=== PATIENT | male | born 1995 | race Caucasian/White ===

== ENCOUNTER 2017-01-05 13:03 | Emergency (ER) | payer OTHER, SELFPAY ==
[~2017-01-05] VITALS: Ht 172.7 cm; Wt 68.0 kg
[2017-01-05 13:04] VITALS: BP 132/52
[2017-01-05] MEDS ORDERED: ALBU17IN (13:35)
== END 2017-01-05 16:06 | disposition left against medical advice (07) ==
LOC: M ED 16:05
DX: Z53.29 Procedure and treatment not carried out because of patient's decision for other reasons (principal)

== ENCOUNTER 2017-01-30 13:56 | Emergency (ER) | payer MEDICAID, SELFPAY ==
[~2017-01-30] VITALS: Ht 172.7 cm; Wt 65.8 kg
[2017-01-30 13:56] VITALS: BP 145/68
[~2017-01-30 13:56] MED LIST: ALBU17IN
[2017-01-30] MEDS ORDERED: ZOLO50TA PO (14:05)
[2017-01-30] MEDS ORDERED: ALBUTEROL 90 MCG/ACT 8GM HFA INHALER INH ONE (14:30)
[2017-01-30] MEDS ORDERED: ALBU17IN2 INH (15:05)
[2017-01-30] MEDS ORDERED: TESS100C PO (15:05)
== END 2017-01-30 15:08 | disposition home or self-care (01) ==
LOC: M ED 14:34
DX: J20.9 Acute bronchitis, unspecified (principal); J45.909 Unspecified asthma, uncomplicated; F17.200 Nicotine dependence, unspecified, uncomplicated; Z79.899 Other long term (current) drug therapy

== ENCOUNTER 2018-05-25 15:05 | Emergency (ER) | payer OTHER, SELFPAY ==
[2018-05-25] MEDS: CYCLOBENZAPRINE 10 MG TAB PO (17:36)
[2018-05-25] MEDS: KETOROLAC TROMETHAMINE 10 MG TAB PO (17:36)
== END 2018-05-25 17:40 | disposition home or self-care (01) ==
LOC: M ED 15:05
DX: M62.830 Muscle spasm of back (principal); J45.909 Unspecified asthma, uncomplicated; M41.9 Scoliosis, unspecified; F90.9 Attention-deficit hyperactivity disorder, unspecified type; F41.9 Anxiety disorder, unspecified; F32.9 Major depressive disorder, single episode, unspecified
CPT/HCPCS: 99283

== ENCOUNTER 2020-02-27 18:14 | Emergency (ER) | payer OTHER ==
[~2020-02-27] VITALS: Ht 170.2 cm; Wt 73.9 kg
[~2020-02-27 18:14] MED LIST changes: +ALBU17IN2 INH; +CYCL-707 PO; +KETO10TAB PO; +TESS100C PO; +VENTAER INH; +ZOLO50TA PO
[2020-02-27] MEDS ORDERED: LIDOCAINE 4% CREAM 5GM (LMX4) TOP ONE (19:00)
[2020-02-27 19:30] VITALS: BP 116/72
[2020-02-27] MEDS ORDERED: ANEC4CRE3 TOP (19:34)
[2020-02-27] MEDS ORDERED: IBUP-1022 PO (19:34)
--- NOTE | 2020-02-28 02:00 | REP ---
ANKLE: REASON: Pain after trauma. COMPARISON: No priors. FINDINGS: No acute fracture or destructive osseous lesion. The mortise is intact. Electronically Signed by Arturo Blake DO 02/28/2020 08:01 A
== END 2020-02-27 19:50 | disposition home or self-care (01) ==
LOC: M ED 18:14
DX: S93.402A Sprain of unspecified ligament of left ankle, initial encounter (principal); W19.XXXA Unspecified fall, initial encounter; Y92.89 Other specified places as the place of occurrence of the external cause; Y99.0 Civilian activity done for income or pay; F17.200 Nicotine dependence, unspecified, uncomplicated; J30.81 Allergic rhinitis due to animal (cat) (dog) hair and dander; Z79.899 Other long term (current) drug therapy; X50.1XXA Overexertion from prolonged static or awkward postures, initial encounter

== ENCOUNTER → 2020-03-13 | Outpatient (CLI) | payer MEDICAID ==
[~2020-03-13] MED LIST changes: +ANEC4CRE3 TOP; +IBUP-1022 PO; +NEXI40CA PO
== END ==
LOC: M LABSMTC 12:36
PROVIDERS: ATTEND Family Medicine
DX: Z11.59 Encounter for screening for other viral diseases (principal)
CPT/HCPCS: C8903; U0003

== ENCOUNTER 2020-09-19 21:03 | Emergency (ER) | payer OTHER ==
[~2020-09-19] VITALS: Ht 170.2 cm; Wt 82.5 kg
[~2020-09-19 21:03] MED LIST changes: -NEXI40CA PO
[2020-09-19] MEDS ORDERED: NEXI40CA PO (21:21)
--- NOTE | 2020-09-19 23:28 | REPVR ---
PROCEDURE INFORMATION: Exam: XR Right Tibia and Fibula Exam date and time: 09/19/2020 10:49 PM Age: 25 years old Clinical indication: Pain; Lower leg; Right; Additional info: Trauma to medial lower leg TECHNIQUE: Imaging protocol: XR Right tibia and fibula. Views: 2 views. COMPARISON: No relevant prior studies available. FINDINGS: Bones/joints: Normal. Soft tissues: Normal. IMPRESSION: No acute findings. Electronically signed by: Tk Choudhary On 09/19/2020 23:28:26 PM
[2020-09-19 23:35] VITALS: BP 118/58
== END 2020-09-19 23:52 | disposition home or self-care (01) ==
LOC: M ED 21:03
DX: S80.11XA Contusion of right lower leg, initial encounter (principal); W20.8XXA Other cause of strike by thrown, projected or falling object, initial encounter; Y92.59 Other trade areas as the place of occurrence of the external cause; Y93.89 Activity, other specified; Y99.0 Civilian activity done for income or pay; F17.200 Nicotine dependence, unspecified, uncomplicated; Z79.899 Other long term (current) drug therapy

== ENCOUNTER 2021-03-02 16:49 | Emergency (ER) | payer OTHER ==
[~2021-03-02] VITALS: Ht 170.2 cm; Wt 77.3 kg
[~2021-03-02 16:49] MED LIST changes: +NEXI40CA PO
[2021-03-02] MEDS ORDERED: ONDANSETRON 4MG/2ML VIAL As Ordered ONE (17:09)
[2021-03-02] MEDS ORDERED: KETOROLAC 30 MG/ML 1ML VIAL IV ONE (17:35)
[2021-03-02] MEDS ORDERED: ONDANSETRON 4MG/2ML VIAL IV ONE (17:35)
[2021-03-02] MEDS ORDERED: NS 1,000 ML IV ONE (17:35)
[2021-03-02 18:05] LABS: BASO % 0.2 % (0.0-1.0); EOS # 0.1 10^3/uL (0.0-0.5); EOS % 0.8 % (0.0-3.0); HEMATOCRIT 50.9 % (42.0-52.0); HEMOGLOBIN 17.9 g/dl (13.5-17.5); LYMPH # 0.4 10^3/uL (1.5-5.0); MEAN CORPUSCULAR HEMOGLOBIN 30.4 pg (27.0-33.0); MEAN CORPUSCULAR HGB CONC 35.2 g/dl (32.0-36.5); MEAN CORPUSCULAR VOLUME 86.4 fl (80.0-96.0); MONO # 0.4 10^3/uL (0.0-0.8); MONO % 3.5 % (2.0-8.0); NEUTROPHILS # 10.1 10^3/uL (1.5-8.5); NEUTROPHILS % 91.2 % (36.0-66.0); PLATELET COUNT, AUTOMATED 218 10^3/uL (150-450); RED BLOOD COUNT 5.89 10^6/uL (4.30-6.10)
[2021-03-02 18:30] LABS: ALBUMIN 4.5 GM/DL (3.2-5.2); BILIRUBIN,DIRECT 0.4 MG/DL (0.0-0.2); BILIRUBIN,TOTAL 2.5 MG/DL (0.2-1.0); TOTAL PROTEIN 7.6 GM/DL (6.4-8.2)
--- NOTE | 2021-03-02 19:33 | REPVR ---
PROCEDURE INFORMATION: Exam: US Abdomen, Limited; Right Upper Quadrant Exam date and time: 03/02/2021 7:14 PM Age: 25 years old Clinical indication: Abdominal pain; Epigastric; Additional info: Abd pain/vomiting/diarrhea TECHNIQUE: Imaging protocol: US abdomen. Real time ultrasound with image documentation. Limited exam focused on the right upper quadrant. COMPARISON: No relevant prior studies available. FINDINGS: Liver: The liver is diffusely echogenic relative to the right kidney, findings consistent with steatosis. Gallbladder: 2 mm echogenic mucosal polyp demonstrated in the gallbladder. Findings likely represent cholesterol polyp. Gallbladder otherwise unremarkable. Common bile duct: The common bile duct measures 4.4 mm. No mass or choledocholithiasis. Pancreas: Visualized pancreas is unremarkable. Right kidney: Right kidney measures 11.2 x 4.2 x 4.7 cm. IMPRESSION: 1. Hepatic steatosis. 2. 2 mm echogenic mucosal polyp demonstrated in the gallbladder. Findings likely represent cholesterol polyp. Electronically signed by: Rupert Middleton On 03/02/2021 19:33:07 PM
[2021-03-02] MEDS ORDERED: GI COCKTAIL 50ML BTL(HYOSCYAMINE/MAALOX/LIDOCAINE VISCOUS)(1:3:1) PO ONE (21:35)
[2021-03-02] MEDS ORDERED: ONDA4TAB6 PO (21:40)
[2021-03-02 22:15] VITALS: BP 108/63
== END 2021-03-02 22:19 | disposition home or self-care (01) ==
LOC: M ED 16:49
DX: K52.9 Noninfective gastroenteritis and colitis, unspecified (principal); K76.0 Fatty (change of) liver, not elsewhere classified; J45.909 Unspecified asthma, uncomplicated; M41.9 Scoliosis, unspecified; F90.9 Attention-deficit hyperactivity disorder, unspecified type; F41.9 Anxiety disorder, unspecified; F33.9 Major depressive disorder, recurrent, unspecified; F17.200 Nicotine dependence, unspecified, uncomplicated
CPT/HCPCS: 76705; 80047; 80076; 81001; 83690; 85025; 87798; 96361; 96374; 96375; 99284; J1885; J2405

== ENCOUNTER 2021-07-09 02:49 | Inpatient (IN) | payer OTHER ==
[~2021-07-09] VITALS: Ht 172.7 cm; Wt 76.4 kg
[~2021-07-09 02:49] MED LIST changes: +ONDA4TAB6 PO
[2021-07-09 03:33] LABS: HEMATOCRIT 44.4 % (42.0-52.0); HEMOGLOBIN 15.9 g/dl (13.5-17.5); MEAN CORPUSCULAR HEMOGLOBIN 30.9 pg (27.0-33.0); MEAN CORPUSCULAR HGB CONC 35.8 g/dl (32.0-36.5); MEAN CORPUSCULAR VOLUME 86.4 fl (80.0-96.0); PLATELET COUNT, AUTOMATED 272 10^3/uL (150-450); RED BLOOD COUNT 5.14 10^6/uL (4.30-6.10); WHITE BLOOD COUNT 6.7 10^3/uL (4.0-10.0)
[2021-07-09 03:55] LABS: AMPHETAMINES LEVEL URINE NEGATIVE (NEGATIVE); BARBITURATES URINE NEGATIVE (NEGATIVE); BENZODIAZEPINES URINE NEGATIVE (NEGATIVE); CANNABINOIDS URINE NEGATIVE (NEGATIVE); COCAINE METABOLITE URINE NEGATIVE (NEGATIVE); METHADONE URINE NEGATIVE (NEGATIVE); OPIATES URINE NEGATIVE (NEGATIVE); PHENCYCLIDINE URINE NEGATIVE (NEGATIVE)
[2021-07-09 04:04] LABS: ACETAMINOPHEN LEVEL < 2.0 UG/ML (10.0-30.0); ALBUMIN 4.3 GM/DL (3.2-5.2); ALT/SGPT 46 U/L (12-78); BILIRUBIN,DIRECT 0.3 MG/DL (0.0-0.2); BLOOD UREA NITROGEN 13 MG/DL (7-18); CALCIUM LEVEL 8.8 MG/DL (8.5-10.1); CARBON DIOXIDE LEVEL 30 MEQ/L (21-32); CHLORIDE LEVEL 106 MEQ/L (98-107); CREATININE FOR GFR 1.06 MG/DL (0.70-1.30); ETHYL ALCOHOL (ETHANOL) < 0.003 % (0.000-0.010); GLOMERULAR FILTRATION RATE > 60.0 (>60); GLUCOSE, FASTING 110 MG/DL (70-100); POTASSIUM SERUM 3.6 MEQ/L (3.5-5.1); SALICYLATE LEVEL < 1.7 MG/DL (5.0-30.0); SODIUM LEVEL 141 MEQ/L (136-145); TOTAL PROTEIN 7.1 GM/DL (6.4-8.2)
[2021-07-09] MEDS ORDERED: NICOTINE 21MG/24HR 1 EA TRANSDERMAL TD ONE (08:45)
[2021-07-09] MEDS ORDERED: ACET-683 PO (09:47)
[2021-07-09] MEDS ORDERED: HOME MED LIST COMPLETE! XX SCH (09:50)
--- NOTE | 2021-07-09 17:54 | ECGEPIP ---
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
[2021-07-09 19:05] LABS: RSV AMPLIFICATION NEGATIVE (NEGATIVE)
[2021-07-09] MEDS ORDERED: traZODone 50 MG TAB PO PRN (22:55)
[2021-07-09] MEDS ORDERED: ACETAMINOPHEN TAB 650MG DOSE (2X325MG) PO PRN (22:55)
[2021-07-09] MEDS ORDERED: MOM 30ML SUSPENSION UDC PO PRN (22:55)
[2021-07-09] MEDS ORDERED: MAALOX 30 ML SUSP *UDC PO PRN (22:55)
[2021-07-09 23:57] VITALS: BP 123/81
[2021-07-10] MEDS: NICOTINE 21MG/24HR 1 EA TRANSDERMAL TD SCH (09:08)
[2021-07-10] MEDS: OLANZapine ORAL DISINTEGRATING TAB 5MG PO PRN (09:12)
[2021-07-10] MEDS: FLUoxetine 20 MG CAP PO SCH (12:43)
[2021-07-10] MEDS ORDERED: ALBUTEROL SULFATE 2.5 MG/0.5 ML INH NEB SOLN INH PRN (13:00)
--- NOTE | 2021-07-10 13:02 | HPEPDOC ---
[facility] Medical History & Physical Date of Admission Jul 09, 2021 Date of Service: Jul 10, 2021 History and Physical Chief complaint: Who presented to the emergency room with complaints of suicidal thoughts History of present illness: Patient is 25-year-old male who presented to the emergency room with complaints of suicidal ideation. Patient was admitted to the inpatient mental health unit under the care of psychiatry. Hospitalist service was consulted for medical evaluation. Patient was seen and examined in the exam room. Patient denied any chest pain, short of breath, palpitations, nausea, vomiting, abdominal pain, diarrhea, or ur inary discomfort. He denies any recent fevers, chills. Patient reported that he had been on Adderall in the past as experiencing weight gain ever since he stopped using the medication. 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 [employer] Review of Systems: 10 point review of systems complete, all negative otherwise stated in HPI Physical exam: - Vitals: BP [123/81], HR [76], RR [16], Sat [97%RA], Temp [98.2F] - General: Lying in bed, Speaking in full sentences, AAOx3 - HEENT: NC, AT, PERRLA - CVS: RRR, +S1S2, - Murmurs / rubs / gallops - Lungs: Fair air entry bilaterally, No appreciable wheezing / rales / rhonchi - Abdomen: Soft, Non-distended, Non-tender - Extremities: No lower extremity edema, No calf tenderness - Neuro: No focal motor or sensory deficit - Skin: No visible rashes Labs: See below Imaging: See below EKG: See below Assessment and Plan: Suicidal ideation - Patient was admitted to the inpatient mental health unit under the care of psychiatry - Currently being managed by psychiatry Asthma - No evidence of exacerbation - c/w Inhaled therapy as ordered DVT prophylaxis - Will c/w early in relation Female licensing analyst was present throughout the duration of this history and physical examination Thank you for this consultation. Hospitalist service will now sign off. Please reconsult as needed Vital Signs Vital Signs Date Time Temp Pulse Resp B/P (MAP) Pulse Ox O2 Delivery O2 Flow Rate FiO2 07/09/21 23:57 98.2 76 16 123/81 (95) 97 Room Air Laboratory Data Labs 24H Laboratory Tests 2 07/09/21 17:54: Coronavirus (COVID-19)(PCR) NEGATIVE, Influenza Type A (RT-PCR) NEGATIVE, Influenza Type B (RT-PCR) NEGATIVE, Respiratory Syncytial Virus (PCR) NEGATIVE Home Medications Scheduled PRN Acetaminophen (Acetaminophen) 500 Mg Tablet, 1,000 MG PO Q6H PRN for PAIN LEVEL 1-4 Albuterol Sulfate (Ventolin Hfa) 108 Mcg/Act Aer, 2 PUFFS INH Q4H PRN for SHORTNESS OF BREATH Allergies Coded Allergies: Cat Dander (Verified Allergy, Mild, 01/05/17) SHAWNA CHRISTIAN MD Jul 10, 2021 13:02
[2021-07-10] MEDS ORDERED: ALBUTEROL 90 MCG/ACT 8GM HFA INHALER INH PRN (14:55)
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
[2021-07-11 06:08] VITALS: BP 150/74
[2021-07-11] MEDS: OLANZapine ORAL DISINTEGRATING TAB 5MG PO PRN (08:31)
[2021-07-11] MEDS: NICOTINE 21MG/24HR 1 EA TRANSDERMAL TD SCH (08:31)
[2021-07-11] MEDS: FLUoxetine 20 MG CAP PO SCH (08:31)
[2021-07-11] MEDS: hydrOXYzine 25 MG TAB PO SCH ×2 (13:09→21:01)
--- NOTE | 2021-07-11 14:04 | MHIPNPDOC ---
[facility] Progress Note Progress Note DATE OF SERVICE: 07/11/21 This 25-year-old man with a 3-year-old and 1-year-old child has had suicidal tendencies with thoughts of driving fast and does have a gun at home and is made previous suicidal gestures. 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 His medical history is positive for asthma and "depression". He has been using Adderall since age 18 and stated he was getting it from friends but in fact it was from his and his gnjmzs-fa-lzc. His depression has been worsening and his insisted that he stop the Adderall. He has had headaches irritability insomnia and feels that the Adderall started to make his depression worse he originally was using it to treat depression. His jbsqft-on-gst by the way uses benzodiazepines and Adderall and he considers her a drug addict. He states he is more angry since stopping Adderall. He is presently supporting himself on unemployment. His also is home on unemployment taking care of the children's 1 child who is states has autism is unable to tolerate change or noise. He is patient has never had psychiatric care nor been hospitalized for psychiatric reasons his medical history is positive for asthma he has a broken arm he has made 2 previous suicide attempts in the past he has had some college education he has never been treated for drug abuse he does not smoke. Family history is positive that the father goes to anger management and then mother goes to psychiatrist as does his grandmother he does not know why. He is concerned he is losing his . His wcoyzc-el-pih as mentioned does abuse drugs his legal history is negative. He has anxiety and depression and seems to look at the ground when he is talking. He worries what people think of him. He came to the hospital on his own worried about his anger. Patient today discussed his ongoing anxiety and we discussed he is starting on Prozac he would like to go back to work since she has not worked in a while due to his depression and anxiety as well as [place] it. He states he has had a long history of depression and suicidal thoughts throughout his life he discussed how he was bullied is a young man and a child and he discussed his concerns about being protective towards his children. He also discussed ongoing difficulties with siblings. He states there is no more Adderall in his home and we discussed his not wanting to get it from his jjesrz-zi-atd. He states he will not be visiting her any further. VITAL SIGNS: See below. NEW TEST RESULTS: None. CURRENT MEDICATIONS: See below. MENTAL STATUS EXAMINATION: Patient is a 25-year old male, who is suffering from a long history of anxiety and depression and recently Adderall abuse. Speech: Is normal. Language skills are intact. Thought processes including: No disturbance in thought process. Thought content: Discussion of family job anxiety and depression. Abstract reasoning, and computation: Able to abstract. Description of associations: No loose associations. Description of abnormal or psychotic thoughts: No psychotic thought. Judgment: Improved. Insight: Fair. Orientation: X3. Recent and remote memory: Intact. Attention span and concentration: Intact. Language: No disturbance. Fund of knowledge: Full. Mood: Neutral. Affect: Neutral. DIAGNOSES: 1. Chronic depression with anxiety. 2. Adderall abuse. 3. None. ASSESSMENT: As above. MANAGEMENT PLAN: Planning to increase his Prozac to 40 mg and add Atarax. Outpatient planning will begin. TIME SPENT: 35 minutes. Vital Signs Vital Signs Date Time Temp Pulse Resp B/P (MAP) Pulse Ox O2 Delivery O2 Flow Rate FiO2 07/11/21 06:08 98.4 77 16 150/74 (99) 97 Room Air Current Medications Current Medications Medications (Trade) Dose Ordered Sig/Shantell Route PRN Reason Start Time Stop Time Status Last Admin Dose Admin Acetaminophen (Tylenol Tab) 650 mg Q6HP PRN PO HEADACHE or MILD DISCOMFORT 07/09/21 22:55 Al Hydrox/Mg Hydrox/Simethicone (Mylanta) 30 ml Q4HP PRN PO HEARTBURN/INDIGESTION 07/09/21 22:55 Albuterol Sulfate (Proventil Neb) 2.5 mg Q2HP PRN INH SOB/WHEEZING 07/10/21 13:00 Cancel Albuterol Sulfate (Proventil, Ventolin Hfa) 2 puff Q2HP PRN INH SHORTNESS OF BREATH 07/10/21 14:55 Fluoxetine HCl (PROzac) 20 mg QAM PO 07/10/21 09:00 07/11/21 10:58 DC 07/11/21 08:31 Fluoxetine HCl (PROzac) 40 mg QAM PO 07/12/21 09:00 Home Med (Home Med List Complete!) ASDIRECTED XX 07/09/21 09:50 07/09/21 09:51 DC Hydroxyzine HCl (Atarax) 25 mg BID PO 07/11/21 09:00 07/11/21 13:09 Magnesium Hydroxide (Milk Of Magnesia) 30 ml DAILYPRN PRN PO CONSTIPATION 07/09/21 22:55 Nicotine (Nicoderm Cq 21mg) 1 patch DAILY TD 07/10/21 09:00 07/11/21 08:31 Olanzapine (ZyPREXA ZYDIS) 5 mg Q4HP PRN PO AGITATION 07/09/21 22:55 07/11/21 08:31 Trazodone HCl (Desyrel) 50 mg QHSP PRN PO INSOMNIA 07/09/21 22:55 07/10/21 20:48 Allergies Coded Allergies: Cat Dander (Verified Allergy, Mild, 01/05/17) MIKEY RAMOS MD Jul 11, 2021 14:04
[2021-07-12 06:46] VITALS: BP 156/76
[2021-07-12] MEDS: hydrOXYzine 25 MG TAB PO SCH ×2 (08:42→21:01)
[2021-07-12] MEDS: FLUoxetine 20 MG CAP PO SCH (08:43)
[2021-07-12] MEDS: NICOTINE 21MG/24HR 1 EA TRANSDERMAL TD SCH ×2 (08:44→11:44)
--- NOTE | 2021-07-12 12:17 | MHIPNPDOC ---
[facility] Progress Note Progress Note DATE OF SERVICE: 07/12/21 HISTORY: This 25-year-old man with a 3-year-old and 1-year-old child has had suicidal tendencies with thoughts of driving fast and does have a gun at home and is made previous suicidal gestures. 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 His medical history is positive for asthma and "depression". He has been using Adderall since age 18 and stated he was getting it from friends but in fact it was from his and his moth er-in-law. His depression has been worsening and his insisted that he stop the Adderall. He has had headaches irritability insomnia and feels that the Adderall started to make his depression worse he originally was using it to treat depression. His zadnzg-on-pdu by the way uses benzodiazepines and Adderall and he considers her a drug addict. He states he is more angry sinc e stopping Adderall. He is presently supporting himself on unemployment. His also is home on unemployment taking care of the children's 1 child who is states has autism is unable to tolerate change or noise. He is patient has never had psychiatric care nor been hospitalized for psychiatric reasons his medical history is positive for asthma he has a broken arm he has made 2 previous suicide attempts in the past he has had some college education he has never been treated for drug abuse he does not smoke. Family history is positive that the father goes to anger management and then mother goes to psychiatrist as does his grandmother he does not know why. He is concerned he is losing his . His vnrojy-lj-ikd as mentioned does abuse drugs his legal history is negative. He has anxiety and depression and seems to look at the ground when he is talking. He worries what people think of him. He came to the hospital on his own worried about his anger. Patient mood significantly improved. All supplies of Adderall removed from the house. Discharge planning will begin VITAL SIGNS: See below. NEW TEST RESULTS: None. CURRENT MEDICATIONS: See below. MENTAL STATUS EXAMINATION: Patient is a 25-year old male, who is significantly improved in mood and self- esteem. Speech: Is normal. Language skills are intact. Thought processes including: No disturbance. Thought content: Optimistic thinking of his children. Abstract reasoning, and computation: Able to abstract. Description of associations: No loose ass ociations. Description of abnormal or psychotic thoughts: No psychotic. Judgment: Improved. Insight: Fair. Orientation: X3. Recent and remote memory: Intact. Attention span and concentration: Intact. Language: No disturbance. Fund of knowledge: Full. Mood: Good. Affect: Bright. DIAGNOSES: 1. Adderall dependence. 2. Anxiety. 3. None. ASSESSMENT: As above MANAGEMENT PLAN: Patient continues on antidepressant and is in a significantly improved state. Discharge planning will be given. TIME SPENT: minutes. Vital Signs Vital Signs Date Time Temp Pulse Resp B/P (MAP) Pulse Ox O2 Delivery O2 Flow Rate FiO2 07/12/21 06:46 96.9 87 18 156/76 (102) 100 Room Air Current Medications Current Medications Medications (Trade) Dose Ordered Sig/Shantell Route PRN Reason Start Time Stop Time Status Last Admin Dose Admin Acetaminophen (Tylenol Tab) 650 mg Q6HP PRN PO HEADACHE or MILD DISCOMFORT 07/09/21 22:55 Al Hydrox/Mg Hydrox/Simethicone (Mylanta) 30 ml Q4HP PRN PO HEARTBURN/INDIGESTION 07/09/21 22:55 Albuterol Sulfate (Proventil Neb) 2.5 mg Q2HP PRN INH SOB/WHEEZING 07/10/21 13:00 Cancel Albuterol Sulfate (Proventil, Ventolin Hfa) 2 puff Q2HP PRN INH SHORTNESS OF BREATH 07/10/21 14:55 Fluoxetine HCl (PROzac) 20 mg QAM PO 07/10/21 09:00 07/11/21 10:58 DC 07/11/21 08:31 Fluoxetine HCl (PROzac) 40 mg QAM PO 07/12/21 09:00 07/12/21 08:43 Home Med (Home Med List Complete!) ASDIRECTED XX 07/09/21 09:50 07/09/21 09:51 DC Hydroxyzine HCl (Atarax) 25 mg BID PO 07/11/21 09:00 07/12/21 08:42 Magnesium Hydroxide (Milk Of Magnesia) 30 ml DAILYPRN PRN PO CONSTIPATION 07/09/21 22:55 Nicotine (Nicoderm Cq 21mg) 1 patch DAILY TD 07/10/21 09:00 07/12/21 11:44 Olanzapine (ZyPREXA ZYDIS) 5 mg Q4HP PRN PO AGITATION 07/09/21 22:55 07/11/21 08:31 Trazodone HCl (Desyrel) 50 mg QHSP PRN PO INSOMNIA 07/09/21 22:55 07/10/21 20:48 Allergies Coded Allergies: Cat Dander (Verified Allergy, Mild, 01/05/17) MIKEY RAMOS MD Jul 12, 2021 12:17
[2021-07-12 18:43] VITALS: BP 137/83
[2021-07-13 06:33] VITALS: BP 133/74
[2021-07-13] MEDS ORDERED: HYDR-3363 PO (07:44)
[2021-07-13] MEDS ORDERED: FLUO20CA22 PO (07:44)
[2021-07-13] MEDS: hydrOXYzine 25 MG TAB PO SCH (08:32)
[2021-07-13] MEDS: FLUoxetine 20 MG CAP PO SCH (08:32)
[2021-07-13] MEDS: NICOTINE 21MG/24HR 1 EA TRANSDERMAL TD SCH (08:33)
--- NOTE | 2021-07-13 13:30 | MHDSPDOC ---
[facility] Discharge Summary Discharge Summary DATE OF ADMISSION: Jul 09, 2021 at 23:45 DATE OF DISCHARGE: Jul 13, 2021 at 10:27 DISCHARGE DIAGNOSES: 1. Major depression 2. Adderall addiction. REASON FOR ADMISSION: This 25-year-old man with a 3-year-old and 1-year-old child has had suicidal tendencies with thoughts of driving fast and does have a gun at home and is made previous suicidal gestures. 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 His medical history is positive for asthma and "depression". He has been using Adderall since age 18 and stated he was getting it from friends but in fact it was from his and his [id number]. His depression has been worsening and his insisted that he stop the Adderall. He has had headaches irritability insomnia and feels that the Adderall started to make his depression worse he originally was using it to treat depression. His [id number] by the way uses benzodiazepines and Adderall and he considers her a drug addict. He states he is more angry since stopping Adderall. He is presently supporting himself on unemployment. His also is home on unemployment taking care of the children's 1 child who is states has autism is unable to tolerate change or noise. He is patient has never had psychiatric care nor been hospitalized for psychiatric reasons his medical history is positive for asthma he has a broken arm he has made 2 previous suicide attempts in the past he has had some college education he has never been treated for drug abuse he does not smoke. Family history is positive that the father goes to anger management and then mother goes to psychiatrist as does his grandmother he does not know why. He is concerned he is losing his . His [id number] as mentioned does abuse drugs his legal history is negative. He has anxiety and depression and seems to look at the ground when he is talking. He worries what people think of him. He came to the hospital on his own worried about his anger. Psychiatric Review of Systems Depression (2 or more weeks): depressed mood, feelings of worthlesness, decreased energy, suicidal thoughts Ethel (4 or more days of): denies PTSD: denies Anxiety: situational anxiety Anxiety/ 6 months or more of: restlessness, keyed up, irritability Past Psychiatric History Previous Psychiatric Diagnosis: None Previous Psychiatric Admissions: None. Suicide Attempts: 2 previous suicidal gestures. Psychiatric Follow-up: None. Psychiatric medications: None except unprescribed Adderall. Past Medical History Medical Problems Asthma Head Injury: No Seizures: No Hospitalizations: No Surgeries: No Family Medical/Psychiatric HX Psychiatric Disorders: Yes Addiction: Yes Suicide Attemps/Completions: No Addiction History methamphetamines Social History Childhood: No reported history. Abuse/Trauma: No reported abuse. Current Living Situation: Lives with and 2 children. Education: Some college. Employment: Not presently employed. Social Support: Marriage. Legal: No legal problems. Marital: Presently with some stressors. TREATMENT AND PROGRESS ON THE UNIT : Patient improved significantly on antidepressants and with counseling. Outpatient plans were made. Any Adderall that was in the house was disposed. HOSPITAL COURSE: As above DISCHARGE ASSESSMENT: Significant improvement in the mood and outpatient treatment now possible MENTAL STATUS EXAMINATION ON DISCHARGE: Patient is a 25-year old male, who is in good mood denies any suicidal ideation. Speech is normal. Language skills are intact. Thought processes including: Hopeful. Thought content: Grateful. Abstract reasoning, and computation: Able to abstract. Description of associations: No loose. Description of abnormal or psychotic thoughts: No psychotic thought. Judgment: Improved. Insight: Improved. Orientation to x3. Recent and remote memory: Intact. Attention span and concentration: Improved. Language: No disturbance. Fund of knowledge: Full. Mood: Good. Affect: Bright. MEDICATIONS ON DISCHARGE: -Fluoxetine for 40 mg depression. -Hydroxyzine for 25 mg twice a day anxiety. PLAN/FOLLOWUP ARRANGEMENTS: As per airport planner. The amount of time spent in the coordination of care for this patient was approximately 35 minutes. ETOH/Disorder Med Rx ETOH/DRUG DISORDER RX: N/A Vital Signs/I&Os Vital Signs Date Time Temp Pulse Resp B/P (MAP) Pulse Ox O2 Delivery O2 Flow Rate FiO2 07/13/21 06:33 97.5 80 16 133/74 (93) 98 Room Air Medications Scheduled Fluoxetine Hcl (Fluoxetine HCl) 20 Mg Capsule, 40 MG PO QAM for Depression, #20 Hydroxyzine HCl (Hydroxyzine HCl) 25 Mg Tablet, 25 MG PO BID for Anxiety, #20 Scheduled PRN Acetaminophen (Acetaminophen) 500 Mg Tablet, 1,000 MG PO Q6H PRN for PAIN LEVEL 1-4, (Reported) Albuterol Sulfate (Ventolin Hfa) 108 Mcg/Act Aer, 2 PUFFS INH Q4H PRN for SH ORTNESS OF BREATH, (Reported) Allergies Coded Allergies: Cat Dander (Verified Allergy, Mild, 01/05/17) MIKEY RAMOS MD Jul 13, 2021 13:30
== END 2021-07-13 10:27 | disposition home or self-care (01) | DRG 754 ==
LOC: M ED 02:49 → M PSY 23:45
PROVIDERS: ADMIT Psychiatry & Neurology Child & Adolescent Psychiatry; ATTEND Psychiatry & Neurology Child & Adolescent Psychiatry
DX: F32.9 Major depressive disorder, single episode, unspecified (principal); F15.20 Other stimulant dependence, uncomplicated; R45.851 Suicidal ideations; J45.909 Unspecified asthma, uncomplicated

== ENCOUNTER 2022-05-04 19:55 | Emergency (ER) | payer OTHER, MEDICAID ==
[~2022-05-04] VITALS: Ht 172.7 cm; Wt 89.5 kg
[2022-05-04 19:55] VITALS: BP 132/65
[~2022-05-04 19:55] MED LIST changes: +ACET-683 PO; +FLUO20CA22 PO; +HYDR-3363 PO
== END 2022-05-05 00:13 | disposition home or self-care (01) ==
LOC: M ED 19:55
DX: S06.0X0A Concussion without loss of consciousness, initial encounter (principal); Y09 Assault by unspecified means; F10.10 Alcohol abuse, uncomplicated; F17.200 Nicotine dependence, unspecified, uncomplicated; Y92.9 Unspecified place or not applicable; Y93.9 Activity, unspecified; Y99.9 Unspecified external cause status

== ENCOUNTER → 2023-01-15 | Outpatient (REF) | payer OTHER, MEDICAID | LOC: M LAB REF 21:23 | PROVIDERS: ATTEND Physician Assistant | DX: J02.9 Acute pharyngitis, unspecified (principal) ==

== ENCOUNTER 2024-04-04 12:07 | Inpatient (IN) | payer MEDICAID, OTHER ==
[~2024-04-04] VITALS: Ht 172.7 cm; Wt 72.2 kg
[~2024-04-04 12:07] MED LIST changes: +CLON-412 PO; +FLUO-365 PO; -FLUO20CA22 PO; +FLUO40CA PO; +GABA-1171 PO; +METH20CA2 PO; +METH20TA29 PO; +ONDA-282 PO; -ONDA4TAB6 PO
[2024-04-04 13:03] LABS: HEMATOCRIT 46.4 % (42.0-52.0); HEMOGLOBIN 16.6 g/dl (13.5-17.5); MEAN CORPUSCULAR HEMOGLOBIN 30.2 pg (27.0-33.0); MEAN CORPUSCULAR HGB CONC 35.8 g/dl (32.0-36.5); MEAN CORPUSCULAR VOLUME 84.4 fl (80.0-96.0); PLATELET COUNT, AUTOMATED 302 10^3/uL (150-450); WHITE BLOOD COUNT 9.8 10^3/uL (4.0-10.0)
[2024-04-04] MEDS ORDERED: HYDR-643 PO (13:15)
[2024-04-04] MEDS ORDERED: VILO100C PO (13:15)
[2024-04-04 13:29] LABS: ETHYL ALCOHOL (ETHANOL) 0.003 % (0.000-0.010)
[2024-04-04 13:30] LABS: SALICYLATE LEVEL < 3.0 MG/DL (<30)
[2024-04-04 13:31] LABS: ALBUMIN 4.3 G/DL (3.2-5.2); ALKALINE PHOSPHATASE 72 U/L (46-116); ALT/SGPT 32 U/L (7.0-40); AST/SGOT 15 U/L (<34); BILIRUBIN,DIRECT 0.5 MG/DL (<0.4); BILIRUBIN,TOTAL 1.5 MG/DL (0.3-1.2); BLOOD UREA NITROGEN 10 MG/DL (9-23); CALCIUM LEVEL 9.6 MG/DL (8.5-10.1); CARBON DIOXIDE LEVEL 28 MMOL/L (20-31); CHLORIDE LEVEL 106 MMOL/L (98-107); CREATININE FOR GFR 0.96 MG/DL (0.70-1.30); GLOMERULAR FILTRATION RATE > 60.0 (>60); GLUCOSE, FASTING 102 MG/DL (60-100); POTASSIUM SERUM 3.7 MMOL/L (3.5-5.1); SODIUM LEVEL 139 MMOL/L (136-145); THYROID STIMULATING HORMONE 1.036 uIU/ML (0.55-4.78); TOTAL PROTEIN 7.1 G/DL (5.7-8.2)
[2024-04-04 15:19] LABS: AMPHETAMINES LEVEL URINE NEGATIVE (NEGATIVE); CANNABINOIDS URINE NEGATIVE (NEGATIVE); METHADONE URINE NEGATIVE (NEGATIVE); OPIATES URINE NEGATIVE (NEGATIVE); PHENCYCLIDINE URINE NEGATIVE (NEGATIVE)
[2024-04-04 15:20] LABS: BARBITURATES URINE NEGATIVE (NEGATIVE); BENZODIAZEPINES URINE NEGATIVE (NEGATIVE); COCAINE METABOLITE URINE NEGATIVE (NEGATIVE)
[2024-04-04] MEDS: NICOTINE 21MG/24HR 1 EA TRANSDERMAL TD ONE (18:46)
[2024-04-04] MEDS ORDERED: diphenhydrAMINE 25MG CAP PO PRN (19:45)
[2024-04-04] MEDS ORDERED: MOM 30ML SUSPENSION UDC PO PRN (19:45)
[2024-04-04] MEDS ORDERED: IBUPROFEN 400MG TAB PO PRN (19:45)
[2024-04-04] MEDS ORDERED: MAALOX 30 ML SUSP *UDC PO PRN (19:45)
[2024-04-04 21:05] VITALS: BP 134/86; TEMP 98.1; O2SAT 96
[2024-04-04] MEDS: traZODone 50 MG TAB PO PRN (22:44)
[2024-04-05] MEDS: ACETAMINOPHEN TAB 650MG DOSE (2X325MG) PO PRN (04:42)
[2024-04-05 06:53] VITALS: BP 114/58; TEMP 96.9; O2SAT 98
[2024-04-05] MEDS: NICOTINE 21MG/24HR 1 EA TRANSDERMAL TD SCH (09:57)
[2024-04-05] MEDS: FLUoxetine 20MG CAP PO SCH (09:57)
[2024-04-05 16:52] VITALS: BP 117/77; TEMP 96.8; O2SAT 94
[2024-04-05] MEDS ORDERED: ALBUTEROL 90 MCG/ACT 8GM HFA INHALER INH PRN (18:05)
[2024-04-05] MEDS ORDERED: FLUO-365 PO (18:17)
[2024-04-05] MEDS ORDERED: HOME MED LIST COMPLETE! XX SCH (18:20)
[2024-04-06 06:30] VITALS: BP_SYST 120; BP_SYST 136; BP_DIAS 67; TEMP 98.6; O2SAT 76; O2SAT 99
[2024-04-06] MEDS ORDERED: TRAZ-252 PO (08:13)
[2024-04-06] MEDS ORDERED: NICO21PAT TD (08:13)
[2024-04-06] MEDS ORDERED: FLUO40CA PO (08:13)
[2024-04-06] MEDS ORDERED: FLUO-365 PO (08:13)
[2024-04-06] MEDS: [UNRECOGNIZED DRUG - OTHER] PO SCH (08:20)
== END 2024-04-06 11:00 | disposition home or self-care (01) | DRG 754 ==
LOC: M ED 12:07 → M ED INP 19:41 → M PSY 20:20
PROVIDERS: ADMIT Student in an Organized Health Care Education/Training Program; ATTEND Student in an Organized Health Care Education/Training Program
DX: F43.21 Adjustment disorder with depressed mood (principal); R45.851 Suicidal ideations; F60.89 Other specific personality disorders; F17.200 Nicotine dependence, unspecified, uncomplicated; F64.9 Gender identity disorder, unspecified; J45.909 Unspecified asthma, uncomplicated; Z79.899 Other long term (current) drug therapy

== ENCOUNTER 2024-05-29 02:31 | Emergency (ER) | payer MEDICAID, OTHER ==
[~2024-05-29] VITALS: Ht 172.7 cm; Wt 70.0 kg
[~2024-05-29 02:31] MED LIST changes: +HYDR-643 PO; +NICO21PAT TD; +TRAZ-252 PO; +VILO100C PO
[2024-05-29 04:12] LABS: BASO % 0.4 % (0.0-1.0); EOS # 0.2 10^3/uL (0.0-0.5); EOS % 2.1 % (0.0-3.0); HEMATOCRIT 41.7 % (42.0-52.0); HEMOGLOBIN 15.1 g/dl (13.5-17.5); LYMPH # 2.1 10^3/uL (1.5-5.0); LYMPH % 23.5 % (24.0-44.0); MEAN CORPUSCULAR HGB CONC 36.2 g/dl (32.0-36.5); MEAN CORPUSCULAR VOLUME 82.7 fl (80.0-96.0); MONO # 0.8 10^3/uL (0.0-0.8); MONO % 9.2 % (2.0-8.0); NEUTROPHILS # 5.8 10^3/uL (1.5-8.5); NEUTROPHILS % 64.7 % (36.0-66.0); PLATELET COUNT, AUTOMATED 282 10^3/uL (150-450); RED BLOOD COUNT 5.04 10^6/uL (4.30-6.10)
[2024-05-29 04:29] LABS: AMPHETAMINES LEVEL URINE NEGATIVE (NEGATIVE); BARBITURATES URINE NEGATIVE (NEGATIVE); BENZODIAZEPINES URINE NEGATIVE (NEGATIVE); CANNABINOIDS URINE NEGATIVE (NEGATIVE); COCAINE METABOLITE URINE NEGATIVE (NEGATIVE); METHADONE URINE NEGATIVE (NEGATIVE); OPIATES URINE NEGATIVE (NEGATIVE); PHENCYCLIDINE URINE NEGATIVE (NEGATIVE)
[2024-05-29 04:31] VITALS: BP 112/60; TEMP 98.1; O2SAT 99
[2024-05-29 04:31] LABS: ETHYL ALCOHOL (ETHANOL) 0.007 % (0.000-0.010)
[2024-05-29 04:32] LABS: CPK CREATINE PHOSPHOKINASE 274 U/L (46-171)
[2024-05-29 04:33] LABS: ALBUMIN 4.2 G/DL (3.2-5.2); ALKALINE PHOSPHATASE 68 U/L (46-116); ALT/SGPT 26 U/L (7.0-40); AST/SGOT 20 U/L (<34); BILIRUBIN,DIRECT 0.5 MG/DL (<0.4); BILIRUBIN,TOTAL 1.5 MG/DL (0.3-1.2); BLOOD UREA NITROGEN 17 MG/DL (9-23); CARBON DIOXIDE LEVEL 26 MMOL/L (20-31); CHLORIDE LEVEL 106 MMOL/L (98-107); CREATININE FOR GFR 1.19 MG/DL (0.70-1.30); GLOMERULAR FILTRATION RATE > 60.0 (>60); GLUCOSE, FASTING 96 MG/DL (60-100); POTASSIUM SERUM 4.1 MMOL/L (3.5-5.1); SALICYLATE LEVEL < 3.0 MG/DL (<30); SODIUM LEVEL 138 MMOL/L (136-145); TOTAL PROTEIN 6.9 G/DL (5.7-8.2)
[2024-05-29 04:35] LABS: THYROID STIMULATING HORMONE 1.473 uIU/ML (0.55-4.78)
== END 2024-05-29 05:03 | disposition home or self-care (01) ==
LOC: EDBD 02:31 → EDSEX 02:31 → M ED 02:31
DX: F43.0 Acute stress reaction (principal); I45.19 Other right bundle-branch block; F90.9 Attention-deficit hyperactivity disorder, unspecified type; Z91.09 Other allergy status, other than to drugs and biological substances; Z79.899 Other long term (current) drug therapy